=== PATIENT | female | born 1965 | race Caucasian/White ===

== ENCOUNTER → 2019-06-16 | Outpatient (CLI) | payer BC ==
--- NOTE | 2019-06-19 16:04 | SLEEP ---
DATE OF STUDY: 06/16/2019 HOME SLEEP STUDY REFERRING PHYSICIAN: MALLORY Chau The patient is a 54-year-old who weighs 175 pounds with a BMI of 29. The patient's [place] score was 7. The patient underwent home sleep study performed at [facility]. Total recording time was 515 minutes. During the night study, the patient had 149 obstructive apneas, 145 mixed apneas, no central apneas, 161 hypopneas. The patient's AHI was 53 per hour. Nocturnal oximetry study revealed a mean oxygen saturation of 94% with the lowest of 82%. Twenty one minutes were spent in oxygen saturation of less than 90%. Mean heart rate 73 beats per minute. IMPRESSION: 1. Severe sleep apnea-hypopnea syndrome at an AHI of 53 per hour. 2. Nocturnal hypoxia secondary to obstructive sleep apnea. RECOMMENDATIONS: 1. The patient would benefit from in-lab CPAP titration study. 2. Once optimum CPAP pressure is achieved, then follow up in 4-6 weeks to assess compliance with CPAP and to document clinical improvement. 3. Weight loss is advised. 4. Avoid PAPER [employer] T[employer]ER depressants. 5. Cautioned regarding driving until symptoms of sleep apnea resolved with CPAP. LATONYA DYER MD DR: TRES/cynthia JOB#: [id number] / [id number] DONNA Lion MD
== END | disposition home or self-care (01) ==
LOC: RT 08:23
PROVIDERS: ATTEND Internal Medicine Cardiovascular Disease
DX: G47.33 Obstructive sleep apnea (adult) (pediatric) (principal); R09.02 Hypoxemia
CPT/HCPCS: G0399

== ENCOUNTER → 2019-09-30 | Outpatient (CLI) | payer BC ==
--- NOTE | 2019-10-02 12:20 | SLEEP ---
DATE OF STUDY: 09/30/2019 SLEEP STUDY ATTENDING PHYSICIAN: Peggy Cantrell NP REFERRING PHYSICIAN: Donna Castano MD The patient is 54 years old who weighs 172 pounds with a BMI of 29. The patient's [place] score was 11. The patient had a previous home sleep study and was found to have severe FIONA at an AHI of 53 per hour. She had nocturnal hypoxia as well. She was referred for in-lab CPAP titration study. During the night of the study, the patient spent 538 minutes in bed and slept for 315 minutes with a sleep efficiency of 58%, which is low. Sleep latency was 65 minutes with absent REM sleep. Sleep architecture showed increased stage 1 and stage 2 sleep, reduced slow wave and absent REM sleep. EKG monitoring revealed an average heart rate of 74 beats per minute, no sustained arrhythmias observed. No clinically significant PLM seen. The patient was started on CPAP at 7 cm water and titrated up to 17 cm water. However, due to persistent respiratory events, the patient was switched to BiPAP at a pressure of 20/15 and titrated up to 24/17. At the final pressure, the patient spent 51 minutes and slept for 25.5 minutes. The patient had supine sleep throughout, but no REM sleep. The patient's AHI was reduced to 2.4 per hour and oxygen saturation remained above 92%. The patient used small size nasal mask. IMPRESSION: 1. Severe obstructive sleep apnea diagnosed by previous sleep study. 2. Nocturnal hypoxia secondary to obstructive sleep apnea, but resolved with BiPAP. 3. No clinically significant periodic limb movements. 4. Reduced sleep efficiency resulting from sleep maintenance insomnia. RECOMMENDATIONS: 1. BiPAP at a pressure of 24/17 completely eliminated the patient's sleep apnea and should be used on a nightly basis. 2. Follow up in 4-6 weeks to assess compliance with BiPAP and to document clinical improvement. 3. Weight loss to the ideal body weight is recommended. 4. Avoid TUFTER HAND depressants. 5. Cautioned regarding driving until symptoms of sleep apnea resolve with the use of BiPAP. 6. If the patient's insomnia persists despite effective use of BiPAP, then it should be further evaluated and treated according to the etiology. LATONYA DYER MD DR: TRES/cynthia JOB#: [id number] / [id number] DONNA Lion MD, Angela NP
== END | disposition home or self-care (01) ==
LOC: RT 19:32
PROVIDERS: ATTEND Internal Medicine Cardiovascular Disease
DX: G47.33 Obstructive sleep apnea (adult) (pediatric) (principal); G47.34 Idiopathic sleep related nonobstructive alveolar hypoventilation; G47.09 Other insomnia
CPT/HCPCS: 95811